=== PATIENT | female | born 2000 | race Hispanic/Latino ===

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

== ENCOUNTER 2022-12-13 12:20 | Outpatient (CLI) | payer BC | END 2022-12-13 12:21 | disposition home or self-care (01) | LOC: TBSIIMAG 12:20 | PROVIDERS: ATTEND Orthopaedic Surgery | DX: M23.92 Unspecified internal derangement of left knee (principal); S83.512A Sprain of anterior cruciate ligament of left knee, initial encounter; S83.242A Other tear of medial meniscus, current injury, left knee, initial encounter; S72.432A Displaced fracture of medial condyle of left femur, initial encounter for closed fracture; S80.12XA Contusion of left lower leg, initial encounter; S83.422D Sprain of lateral collateral ligament of left knee, subsequent encounter; S83.92XA Sprain of unspecified site of left knee, initial encounter ==

== ENCOUNTER 2023-03-13 15:22 | Outpatient (CLI) | payer BC ==
[2023-03-13 17:22] LABS: #Basophils 0.1 10x3/uL (0.0-0.2); #Eosinphils 0.3 10x3/uL (0.0-0.5); #Monocytes 0.9 10x3/uL (0.0-1.1); %Basophils 0.8 % (0.0-2.0); %Eosinophils 3.1 % (0.0-6.0); %Lymphocytes 27.5 % (18.0-47.0); %Neutrophils 58.9 % (40.0-75.0); Hemoglobin 13.8 g/dL (12.0-15.5); Mean Corpuscular Hemoglobin 27.3 pg (27.0-33.0); Mean Corpuscular Volume 85.2 fl (81.6-98.3); Mean Platelet Volume 11.5 fl (7.4-10.4); Platelet Count 295 10x3/uL (150-450); RBC Distribution Width 13.3 % (11.5-14.5); Red Blood Cell (RBC) Count 5.06 10x6/uL (3.90-5.03); White Blood Cell (WBC) Count 10.2 10x3/uL (3.5-10.5)
[2023-03-13 17:34] LABS: BHCG - Serum Negative (NEGATIVE); Pregs Control Background? CLEAR/WHITE (CLR/WHITE); Pregs Control Bar Appear? YES (CONTROL BAR)
== END 2023-03-13 15:23 | disposition home or self-care (01) ==
LOC: LABBT 15:22
PROVIDERS: ATTEND Orthopaedic Surgery
DX: Z01.812 Encounter for preprocedural laboratory examination (principal); S83.512A Sprain of anterior cruciate ligament of left knee, initial encounter; S83.242A Other tear of medial meniscus, current injury, left knee, initial encounter
CPT/HCPCS: 84703; 85025

== ENCOUNTER 2023-03-16 05:41 | Day surgery (SDC) | payer BC ==
[2023-03-15 13:39] VITALS: BMI 34.7
[2023-03-16] MEDS ORDERED: fentaNYL PF 100 MCG/2 ML SYRINGE ONE ×2 (06:09→07:49)
[2023-03-16] MEDS ORDERED: Midazolam HCl 2 mg/2 ml Vial ONE (06:37)
[2023-03-16] MEDS ORDERED: fentaNYL 50 mcg/mL 1 mL Vial ONE (06:37)
[2023-03-16] MEDS ORDERED: Bupivacaine PF 0.5% 30 ML VIAL ONE (06:38)
[2023-03-16] MEDS ORDERED: Lidocaine 1% (PF) 30 ML VIAL ONE (06:38)
[2023-03-16] MEDS ORDERED: EPINEPHrine 1 MG/ML AMP ONE (06:38)
[2023-03-16] MEDS ORDERED: CEFAZOLIN 2 GM VIAL ONE (06:50)
[2023-03-16] MEDS ORDERED: Sodium Chloride 0.9% 100 ML ONE (06:50)
[2023-03-16] MEDS ORDERED: Ketorolac Tromethamine 30 MG/ML VIAL ONE (07:11)
[2023-03-16] MEDS ORDERED: Dexamethasone 20 MG/5 ML VIAL ONE (07:11)
[2023-03-16] MEDS ORDERED: Ondansetron PF 4 MG/2 ML Vial ONE (07:11)
[2023-03-16] MEDS ORDERED: Metoclopramide HCl 10 MG/2 ML VIAL ONE (07:11)
[2023-03-16] MEDS ORDERED: Lidocaine 1% PF 5 ML VIAL ONE (07:11)
[2023-03-16] MEDS ORDERED: PROPOFOL 200 MG/20 ML VIAL ONE (07:11)
[2023-03-16] MEDS ORDERED: Ondansetron PF 4 MG/2 ML Vial IVP PRN (07:15)
[2023-03-16] MEDS ORDERED: traMADol HCl 50 MG TAB PO PRN ×2 (07:15)
[2023-03-16] MEDS ORDERED: fentaNYL 50 mcg/mL 1 mL Vial SLOW IVP PRN (07:15)
[2023-03-16] MEDS ORDERED: Ropivacaine 0.2% 550 ML 550 ML NERVE BLCK SCH (07:15)
[2023-03-16] MEDS ORDERED: Promethazine HCl 25 MG/ML VIAL IM PRN (07:15)
[2023-03-16] MEDS ORDERED: Zolpidem Tartrate 5 MG TAB PO PRN (07:15)
[2023-03-16] MEDS ORDERED: HYDROcodone/Acetaminophen 10/325 mg Tablet PO PRN ×2 (07:15)
[2023-03-16] MEDS ORDERED: HYDROcodone/Acetaminophen 5/325 mg Tablet ONE (10:46)
[2023-03-16] MEDS ORDERED: Ketorolac Tromethamine 30 MG/ML VIAL IVP SCH (12:00)
[2023-03-16] MEDS ORDERED: Ondansetron ODT 4 MG TAB ONE (12:38)
== END 2023-03-16 12:55 | disposition home or self-care (01) ==
LOC: SDC 05:41
PROVIDERS: ATTEND Orthopaedic Surgery
PROC: 0MRP47Z Replacement of Left Knee Bursa and Ligament with Autologous Tissue Substitute, Percutaneous Endoscopic Approach (ICD-10-PCS; principal; 2023-03-16)
DX: S83.512A Sprain of anterior cruciate ligament of left knee, initial encounter (principal); S83.412A Sprain of medial collateral ligament of left knee, initial encounter; S83.8X2A Sprain of other specified parts of left knee, initial encounter; W17.89XA Other fall from one level to another, initial encounter; Y93.44 Activity, trampolining
CPT/HCPCS: A4306; C1713; J0171; J1100; J1885; J2001; J2250; J2405; J2704; J2765; J2795; J3010; J3490; Q0162; S0020